=== PATIENT | male | born 1975 | race Caucasian/White ===

== ENCOUNTER → 2023-08-23 | Day surgery (SDC) | payer OTHER ==
[~2023-08-23] VITALS: Ht 180.3 cm; Wt 69.2 kg
[~2023-08-23] MED LIST: K2-4545 MCG PO; LR 1,000 ML IV SCH; Ondansetron 4 MG/2 ML VIAL IV PRN; PRINIVIL10 MG PO; VITAMIN B COMPL1 T16 PO
[2023-08-23 13:47] VITALS: BP 115/72; PULSE 117; TEMP 97.9
--- NOTE | 2023-08-23 14:21 | NUR ---
MD Andree in room and updated pt's family member
[2023-08-23 14:30] VITALS: BP 82/59; PULSE 122; TEMP 98
--- NOTE | 2023-08-23 14:30 | NUR ---
Pt back to room 3 - ambulated with standby assist to chair. Pt denies pain or nausea. at bedside. Call light in reach. Pt systolic BP in the 80's and HR in the 120's - which is near baseline/pre-procedure for the patient. 1432: Pt tolerating clear liquids without difficulty - denies muffin or toast
[2023-08-23 14:45] VITALS: BP 87/74; PULSE 94
== END ==
LOC: SDCO 08-09 05:35
DX: Z12.11 Encounter for screening for malignant neoplasm of colon (principal); K57.30 Diverticulosis of large intestine without perforation or abscess without bleeding
CPT/HCPCS: J2704; J7120